=== PATIENT | male | born 1965 | race Caucasian/White ===

== ENCOUNTER 2021-10-09 21:20 | Emergency (ER) | payer OTHER ==
[~2021-10-09] VITALS: Ht 182.9 cm; Wt 66.2 kg
[2021-10-09 22:50] LABS: BASOPHILS # (AUTO) 0.1 X10'3 (0-0.2); BASOPHILS % (AUTO) 1.4 % (0-1); EOSINOPHILS % (AUTO) 1.1 % (0-6); HEMOGLOBIN 7.3 g/dl (14.0-17.9); LYMPHOCYTES # (AUTO) 0.2 X10'3 (1.1-4.8); MEAN CORPUSCULAR HEMOGLOBIN 29.7 PG (27.0-31.0); MEAN CORPUSCULAR HGB CONC 33.7 g/dL (33.0-36.5); MEAN CORPUSCULAR VOLUME 88.1 FL (78-98); MEAN PLATELET VOLUME 11.4 FL (7.4-10.4); MONOCYTES # (AUTO) 0.3 X10'3 (0-0.9); MONOCYTES % (AUTO) 8.2 % (2-12); NEUTROPHILS # (AUTO) 3.6 X10'3 (1.8-7.7); NEUTROPHILS % (AUTO) 84.3 % (42-75); PLATELET COUNT 147 X10'3 (140-440); RED BLOOD COUNT 2.45 X10'6 (4.70-6.10); RED CELL DISTRIBUTION WIDTH 17.4 % (11.5-14.5); WHITE BLOOD COUNT 4.2 X10'3 (4.5-11.0)
[2021-10-09 22:58] LABS: APTT 28 SECONDS (22-32)
[2021-10-09 23:00] LABS: ALANINE AMINOTRANSFERASE 72 U/L (12-78); ALBUMIN 2.7 G/DL (3.4-5.0); ALKALINE PHOSPHATASE 542 IU/L (46-116); ASPARTATE AMINO TRANSFERASE 70 U/L (10-37); BILIRUBIN,TOTAL 10.9 MG/DL (0.1-1.0); BLOOD UREA NITROGEN 36 MG/DL (7-18); BUN/CREATININE RATIO 25.5 (5.4-32.0); CALCIUM 10.7 MG/DL (8.5-10.1); CHLORIDE 97 MMOL/L (99-107); CREATININE 1.41 MG/DL (0.60-1.10); GLUCOSE 173 MG/DL (70-104); LIPASE 586 U/L (73-393); MAGNESIUM 1.7 MG/DL (1.5-2.4); TOTAL CARBON DIOXIDE 22.5 MMOL/L (24-32); eGFR 52 ML/MIN
[2021-10-09 23:15] LABS: HEMATOCRIT 21.6 % (42.0-52.0)
[2021-10-09 23:20] LABS: ALBUMIN/GLOBULIN RATIO 0.6 (1.1-1.5); ANION GAP 19 (8-16); ETHANOL < 0.010 GM/DL (0.0-0.010); POTASSIUM 4.8 MMOL/L (3.5-5.1); SODIUM 138 MMOL/L (135-145); TOTAL PROTEIN 7.2 G/DL (6.4-8.2)
[2021-10-09 23:26] LABS: PLATELET ESTIMATE NORMAL
[2021-10-09 23:27] LABS: HYPOCHROMASIA 1+; LARGE PLATELETS FEW; POLYCHROMASIA FEW
[2021-10-09 23:28] LABS: ANISOCYTOSIS 1+; TARGET CELLS FEW; TEAR DROP CELLS FEW
[2021-10-10 03:08] VITALS: BP 95/68
[2021-10-10 03:44] VITALS: BP 106/66
[2021-10-10 04:44] VITALS: BP 105/64
[2021-10-10 05:34] VITALS: BP 94/63
== END 2021-10-10 05:47 | disposition home or self-care (01) ==
LOC: ER 21:20
DX: D64.89 Other specified anemias (principal); C78.89 Secondary malignant neoplasm of other digestive organs; K85.90 Acute pancreatitis without necrosis or infection, unspecified; I10 Essential (primary) hypertension; Z85.9 Personal history of malignant neoplasm, unspecified
CPT/HCPCS: 36415; 36430; 71045; 80053; 80320; 82140; 83690; 83735; 85008; 85025; 85610; 85730; 86644; 86885; 86900; 86901; 86920; 86945; 93005; 99291; P9016; 99285